=== PATIENT | female | born 1975 | race American Indian/Alaskan Native ===

== ENCOUNTER 2018-04-10 07:26 | Day surgery (SDC) | payer MEDICAID ==
[~2018-04-10 07:26] MED LIST: METHERGINE IM ONE; SILVER NITRATE TP ONE
--- NOTE | 2018-04-10 08:06 | Short Stay Summary ---
Short Stay Documentation Date of service: 04/10/18 Narrative H&P: Patient is a 42 year old who presented 8 weeks ago with IUP, but then began bleeding a couple of weeks later with falling hcg levels. Patient was initially offered a D&C but refused and requested a pill instead. Patient continued to have intermittent episodes of bleeding. Patient has now agreed to D&C. - History H&P: obtained from office Past Medical History: hypertension Past Surgical History: No surgical history Social history: single - Allergies and Medications Current Medications: Allergies crab Allergy (Verified 04/09/18 09:42) Lips, tongue swell Home Medications Medication Instructions Recorded Confirmed Last Taken Type Ferrous Sulfate [Feosol 325 MG tab] 325 mg PO DAILY 04/09/18 04/09/18 Unknown History - Physical exam General appearance: no acute distress Integumentary: no rash, no growths HEENT: Atraumatic Lungs: Clear to auscultation, Normal air movement Breasts: deferred Heart: Regular rate, Normal S1, Normal S2 Gastrointestinal: normal, normoactive bowel sounds Female Genitourinary: normal Rectal Exam: deferred Extremities: no ischemia, No edema - Brief post op/procedure progress note Date of procedure: 04/10/18 Pre-op diagnosis: Incomplete Post-op diagnosis: same Procedure: D&C Anesthesia: GETA Findings: large piece of partially calcified tissue present in the lower uterine segment Surgeon: REGINALDO PERDOMO Estimated blood loss: 50-100ml Pathology: list (uterine contents) Specimen disposition: to lab Condition: stable - Hospital course Hospital course: unremarkable - Disposition Condition at discharge: Good Disposition: DC-01 TO HOME OR SELFCARE Short Stay Discharge Plan Activity: advance as tolerated, other (nothing in the vagina) Weight Bearing Status: Weight Bear as Tolerated Diet: regular Follow up with: REGINALDO PERDOMO MD [Staff Physician] - 14 Days Prescriptions: HYDROcodone/ACETAMINOPHEN [[place] 5-325 Tablet] 1 each PO Q6H #15 tablet Ibuprofen [Motrin] 800 mg PO Q8HR PRN #30 tablet PRN Reason: Pain, Mild (1-3)
[2018-04-10] MEDS ORDERED: VERSED ONE (08:09)
[2018-04-10] MEDS ORDERED: PEPCID IV ONE (08:10)
[2018-04-10] MEDS ORDERED: LACTATED RINGERS 1,000 ML ONE (08:10)
[2018-04-10] MEDS ORDERED: SUBLIMAZE ONE (08:53)
[2018-04-10] MEDS ORDERED: QUELICIN ONE ×2 (08:53)
[2018-04-10] MEDS ORDERED: XYLOCAINE CARDIAC IV ONE (08:56)
[2018-04-10] MEDS ORDERED: DIPRIVAN 10 MG/ML IV ONE (08:56)
[2018-04-10] MEDS ORDERED: ANCEF/STERILE WATER 2 GM/20 ML 2 GM/20 ML SYRINGE IV NR (09:00)
[2018-04-10] MEDS ORDERED: ZOFRAN ONE (09:11)
[2018-04-10] MEDS ORDERED: ATROVENT IH ONE (09:35)
[2018-04-10] MEDS ORDERED: PROVENTIL IH ONE (09:35)
[2018-04-10] MEDS ORDERED: ATROVENT IH PRN (09:38)
[2018-04-10] MEDS ORDERED: PROVENTIL IH PRN (09:38)
[2018-04-10] MEDS: DILAUDID IV PRN ×2 (10:05→10:27)
--- NOTE | 2018-04-10 10:19 | Operative Report ---
Operative Report Operative Report: Preoperative diagnoses: Incomplete Postoperative diagnosis: Same Procedure: D and c Surgeon: Mackenzie Zaman M.D. Anesthesia: MAC EBL: Minimal Urine output: 100 mL clear Complications: None Specimens: Products of conception Procedure: Patient was taken to the OR with IV running and in place. She was properly identified as herself. She was given adequate anesthesia. She was then placed in the dorsal lithotomy position and prepped and draped in normal sterile fashion. Attention was turned to the patient's vagina. Her bladder was then drained of approximately 100 mL of clear yellow urine. A bivalve speculum was placed the patient's vagina. Cervix was visualized and grasped with a single-tooth tenaculum. The cervix was then gently dilated up to approximately 29 mm. Following this, a sharp curettage was performed which revealed a 3 cm piece of partially calcified tissue that was removed from the uterus. Further curettage revealed no other tissue and there was a gritty texture noted in all 4 quadrants of the uterus. There was excellent hemostasis noted at the end of this portion of the procedure. At this point all instruments were removed from the patient's vagina. She was then awakened and taken to recovery in stable condition. She tolerated the procedure well
[2018-04-10 10:44] VITALS: BP 113/60
--- NOTE | 2018-04-10 17:28 | Post Anesthesia Evaluation ---
- Post Anesthesia Evaluation Patient Participated: Yes Airway Patent: Yes Stable Respiratory Function: Yes Nausea/Vomiting: No Temp > 96.8F: Yes Pain Manageable: Yes Adequeate Hydration: Yes Anesthesia Complications: No
--- NOTE | 2018-04-10 17:28 | Anesthesia Day of Surgery ---
Anesthesia Day of Surgery - Day of Surgery Patient Examined: Yes Patient H&P Reviewed: Yes Patient is NPO: Yes
--- NOTE | 2018-04-10 17:28 | Anesthesia Consultation ---
Anesthesia Consult and Med Hx Date of service: 04/10/18 - Airway Anesthetic Teeth Evaluation: Poor, Chipped ROM Head & Neck: Adequate Mental/Hyoid Distance: Adequate Mallampati Class: Class III Intubation Access Assessment: Possibly Difficult - Pulmonary Exam CTA: Yes - Cardiac Exam Cardiac Exam: RRR - Pre-Operative Health Status ASA Pre-Surgery Classification: ASA2 Proposed Anesthetic Plan: General - Pulmonary Hx Smoking: Yes - Central Nervous System Hx Psychiatric Problems: No - Hematic Hx Anemia: Yes - Other Systems Hx Cancer: No
== END 2018-04-10 07:27 | disposition home or self-care (01) ==
LOC: OR 07:26
PROVIDERS: ATTEND Obstetrics & Gynecology
DX: O03.4 Incomplete spontaneous abortion without complication (principal); F17.210 Nicotine dependence, cigarettes, uncomplicated; G43.909 Migraine, unspecified, not intractable, without status migrainosus; K21.9 Gastro-esophageal reflux disease without esophagitis; Z98.890 Other specified postprocedural states; Z79.899 Other long term (current) drug therapy; Z88.8 Allergy status to other drugs, medicaments and biological substances; Z86.2 Personal history of diseases of the blood and blood-forming organs and certain disorders involving the immune mechanism
CPT/HCPCS: 59812; 88305; J0330; J1170; J2001; J2250; J2405; J2704; J3010; J7120; J2210